=== PATIENT | male | born 1940 | race Caucasian/White ===

== ENCOUNTER 2021-04-10 10:22 | Observation (INO) | payer OTHER, SELFPAY ==
[2021-04-10] VITALS (36 sets, daily range): BP systolic 144–233; BP diastolic 76–130; PULSE 55–110; RESP 15–25; TEMP 36.5–36.8; O2SAT 93–100; BMI 24.3
--- NOTE | 2021-04-10 | ECHO_ITS ---
Patient Info Name: Vladimir uMrry Age: 80 years : 1940 Gender: Male Ht: 69 in Wt: 171 lbs BSA: 1.95 m2 HR: 64 bpm BP: 194 / 81 mmHg Technical Quality: Good Exam Date: 04/10/2021 4:01 PM Exam Location: [facility] Pulmonary Exam Room: [facility] Patient Status: Outpatient Admit Date: 04/10/2021 Staff Ordering Physician: Singh Corado DO Clergy Member: Cherri Patel RDCS Attending Provider: Milton Garcia MD Referring Physician: Mak OLIVO; Exam Type: CA echo doppler color flow Study Info Indications - hypertyensive urgency palpitations chest pain Complete two-dimensional, color flow and Doppler transthoracic echocardiogram is performed. Summary 1. Complete two-dimensional, color flow and Doppler transthoracic echocardiogram is performed. 2. Left ventricular chamber dimension is normal. 3. Left ventricular systolic function is normal, estimated at 60-65%. 4. The left ventricular diastolic function is grade I diastolic dysfunction. 5. E/e' 8 is minimally elevated. 6. Right atrial chamber dimension is mildly enlarged. 7. The mitral valve has mildly calcified annulus. 8. There is trace mitral valve regurgitation. 9. There is mild tricuspid valve regurgitation. 10. No pulmonary hypertension, estimated pulmonary arterial systolic pressure is 25 mmHg. 11. There is mild pulmonic regurgitation. Left Ventricle E/e' 8 is minimally elevated. Left ventricular chamber dimension is normal. Left ventricular systolic function is normal, estimated at 60-65%. The left ventricular diastolic function is grade I diastolic dysfunction. Right Ventricle Right ventricular systolic function is normal and with normal TAPSE 2.6 cm. Right ventricular chamber dimension is normal. Left Atria Left atrial chamber dimension is normal. Right Atria Right atrial chamber dimension is mildly enlarged. Aortic Valve The aortic valve is trileaflet. There is no aortic valve stenosis. There is no aortic valve regurgitation. Pulmonic Valve There is mild pulmonic regurgitation. Mitral Valve The mitral valve has mildly calcified annulus. There is no mitral valve stenosis. There is trace mitral valve regurgitation. Tricuspid Valve There is mild tricuspid valve regurgitation. No pulmonary hypertension, estimated pulmonary arterial systolic pressure is 25 mmHg. Pericardium/Pleural There is no pericardial effusion. Inferior Vena Cava Normal inferior vena cava with >50% collapse upon inspiration consistent with normal right atrial pressure, 5 mmHg. Aorta The aortic root size at the sinus of Valsalva is normal. Left Ventricular Outflow Tract Name Value Normal LVOT 2D LVOT Diameter 2.0 cm LVOT Doppler LVOT Peak Gradient 5 mmHg LVOT Mean Gradient 3 mmHg LVOT VTI 26 cm LVOT VTI/AV VTI Ratio 0.9 LVOT Stroke Volume 84 ml LVOT CO 14.9 l/min LVOT CI 7.6 l/min/m2 Pulmonic Valve ---------
--- NOTE | ~2021-04-10 | XR_ITS ---
EXAMINATION: XR chest 2V EXAM DATE: 04/10/2021 10:39 INDICATION: Acute onset chest pain since last night. Hypertension. TECHNIQUE: Frontal and lateral projections of the chest obtained and reviewed. Comparison is made to prior examination from 11/11/2016. FINDINGS: Small amount right upper lobe scarring. There are no pleural effusions. The cardiomediast inal silhouette is within normal limits. There is no pneumothorax suspected. The bones and soft tis sues are unremarkable. Right upper quadrant calcification, possible cholelithiasis. IMPRESSION: No acute cardiopulmonary findings. Reviewed, dictated and finalized at location B.
--- NOTE | 2021-04-10 10:30 | ECG_ITS ---
Measurements Intervals [place] Rate: 91 P: 55 MN: 199 QRS: 30 QRSD: 99 T: 50 QT: 339 QTc: 417 Interpretive Statements SINUS RHYTHM VENTRICULAR PREMATURE COMPLEX BASELINE ARTIFACT- III, AVL, AVF, V1 BORDERLINE ECG Electronically Signed On 04-10-2021 10:46:40 CDT by Singh Coardo D.O.
[2021-04-10 10:41] LABS: Basophils Percent Auto 0.4 % (0.2-1.2); Eosinophils Absolute Auto 0.1 K/mm3 (0-0.3); Eosinophils Percent Auto 1.2 % (0-4.4); Hematocrit 47.5 % (42.0-52.0); Hemoglobin 15.8 g/dL (14.0-18.0); Immature Granulocyte Absolute 0.03 K/mm3 (0.00-0.031); Immature Granulocyte Percent A 0.4 % (0-0.5); Lymphocytes Absolute Auto 2.12 K/mm3 (0.9-3.2); Lymphocytes Percent Auto 27.4 % (18.3-44.2); Mean Corpuscular HGB Conc 33.3 g/dl (32-36); Mean Corpuscular Volume 90.1 fl (80-100); Mean Platelet Volume 8.6 fl (7.4-10.4); Monocytes Absolute Auto 0.3 K/mm3 (0.1-0.6); Monocytes Percent Auto 3.5 % (2.6-8.5); Neutrophils Absolute Auto 5.2 K/mm3 (1.3-6.7); Neutrophils Percent Auto 67.1 % (45.5-73.1); Platelet Count Result 308 k/mm3 (150-375); Red Blood Count 5.27 M/mm3 (4.6-6.20); Red Cell Distribution Width 12.9 % (11.5-14.5); White Blood Count 7.7 K/mm3 (4.5-10.0)
--- NOTE | 2021-04-10 10:47 | ED.CHESTPAIN ---
HPI - Chest Pain General Chief Complaint: Chest Pain Stated Complaint: CHEST PAIN Time Seen by Provider: 04/10/21 10:39 Source: patient Mode of arrival: ambulatory Limitations: no limitations History of Present Illness HPI narrative: Patient is a 80-year-old male complaining of chest pain, midsternal, pressure, thumping , 4 out of 10, started 1 week ago and has progressively gotten worse. Patient denies any shortness of breath, abdominal pain, nausea, vomiting, diaphoresis, fever or chills. Related Data Home Medications Medication Instructions Recorded Confirmed No Home Medications 04/10/21 Allergies Allergy/AdvReac Type Severity Reaction Status Date / Time No Known Allergies Allergy Verified 11/13/16 00:02 Review of Systems Review of Systems: All systems reviewed & are unremarkable except as noted in HPI and below Constitutional: Constitutional: Denies body ache(s), Denies chills, Denies excessive sweating, Denies fatigue, Denies fever(s), Denies headache(s), Denies lethargy, Denies malaise, Denies weakness and Denies weight loss Eyes: Eyes: Denies blurry vision, Denies change in vision and Denies loss of vision ENT: Denies dizziness, Denies ear discharge, Denies headache(s), Denies lip swelling, Denies epistaxis, Denies nasal congestion, Denies neck pain, Denies throat swelling and Denies tongue swelling Cardiovascular: Cardiovascular: Denies diaphoresis, Denies rapid heart rate, Denies edema, Denies irregular heart rhythm, Denies lightheadedness, Denies palpitations, Denies dyspnea and Denies dyspnea on exertion Respiratory: Respiratory: Denies chest congestion, Denies cough, Denies hemoptysis, Denies dyspnea and Denies dyspnea on exertion Gastrointestinal: Gastrointestinal: Denies abdominal pain, Denies melena, Denies hematochezia, Denies diarrhea, Denies nausea, Denies vomiting and Denies hematemesis Musculoskeletal: Musculoskeletal: Denies abnormal gait, Denies deformity, Denies joint swelling, Denies limited range of motion, Denies neck pain and Denies numbness Neurologic: Denies Abnormal speech present, Denies abnormal gait, Denies confusion, Denies dizziness, Denies headache(s), Denies focal weakness, Denies loss of vision, Denies numbness, Denies Other visual disturbances, Denies Sensory deficit (Neuro) and Denies weakness Psychiatric: Psychiatric: Denies confusion, Denies depression, Denies auditory hallucinations, Denies homicidal ideation and Denies suicidal ideation Endocrine: Endocrine: Denies cold intolerance, Denies excessive sweating, Denies fatigue, Denies heat intolerance and Denies palpitations Hematologic/Lymphatic: Hematologic/Lymphatic: Denies easy bleeding and Denies easy bruising Allergic/Immunologic: Allergic/Immunologic: Denies lip swelling, Denies throat swelling and Denies tongue swelling PMFSH Comments Past medical history: None Family history: Negative for coronary disease or [place] Social history: Non-smoker no EtOH or drug use Exam Const: General: cooperative, healthy appearing, comfortable, no acute distress, well developed, alert and awake; No confusion Orientation/consciousness: oriented to person, oriented to place, oriented to time, patient oriented x3 and No confusion Limitations: no limitations HENMT: Head: normal to inspection, normocephalic and atraumatic Ears: hearing grossly normal bilaterally, TM normal on the right and TM normal on the left General nose exam: Normal external nose present, Normal nares present and No nasal discharge present Face and sinus: normal facial exam Mouth: Yes Normal oral and palatal mucosa present, Yes lip normal, Yes tongue normal and Yes oropharynx normal Throat: posterior oropharynx normal, tonsils normal and uvula midline Eyes: General: appearance normal, both eyes and all related structures Pupils: Equal, round and reactive pupils present EOM: EOMs intact bilaterally Neck: Neck: normal visual inspection, full ROM, no lymphadenopathy an
[2021-04-10 10:48] LABS: INR 0.9
[2021-04-10] MEDS: NITROGLYCERIN SL 0.4 MG TABLET SUBLINGUAL (10:48)
[2021-04-10 10:49] LABS: Partial Thromboplastin Time 31.4 SECONDS (22.3-36.8)
[2021-04-10 10:51] LABS: Anion Gap 13 mmol/L (8-16); Blood Urea Nitrogen 18 mg/dL (9-20); Calcium 9.7 mg/dL (8.4-10.2); Carbon Dioxide 24 mmol/L (22-30); Chloride 104 mmol/L (98-107); Estimated CRCL calculation 53 ml/min; Estimated Glomerular Filt Rate > 60; Glucose 187 mg/dL (65-110); Potassium 4.2 mmol/L (3.4-5.0); Sodium 141 mmol/L (137-145)
[2021-04-10] MEDS: ASPIRIN 81 MG CHEWABLE TABLET 324 MG PO (10:52)
[2021-04-10 11:03] LABS: Troponin I < 0.012 ng/mL (0.000-0.034)
--- NOTE | 2021-04-10 13:18 | PM.CNCAR ---
Assessment and Plan Assessment and plan (1) Palpitations: Code(s): R00.2 - Palpitations Status: Acute Assessment and Plan: Placed on telemetry. Series of troponin to r/o ACS. Obtain echo. (2) Hypertensive urgency: Code(s): I16.0 - Hypertensive urgency Status: Acute Assessment and Plan: Monitor BP as it is improving. Probably new onset Hypertension aggravated by palpitations/stress. Start Toprol XL 25 mg daily. History of Present Illness History of Present Illness Consult date/time: 04/10/21 13:18 Reason for consult: Palpitations. 80 yr old man presents to ED with palpitations. He has no prior cardiac problems. Reports that he received his second Moderna vaccine shot last week and ever since then he reported daily thumping sensation in his chest primarily at night while resting. Last night there was so much of it that it was hard for him to get to sleep. He can ride 20 miles on his bike without any problems and can walk 1 mile without any problems. He states he became anxious from this and his BP went up. His BP in ER was very high 230/130. He was given NTG SL and BP improved and his thumping resolved. Denies chest pain, sob, orthopnea, PND, edema, dizziness. Reason For Visit: CHEST PAIN Review of Systems Review of Systems: All systems reviewed & are unremarkable except as noted in HPI and below Constitutional: Constitutional: Reports as per HPI, Denies chills and Denies fever(s) Cardiovascular: Cardiovascular: Reports as per HPI, Denies chest pain, Reports irregular heart rhythm, Denies leg edema and Denies lightheadedness Respiratory: Respiratory: Reports as per HPI and Denies dyspnea Gastrointestinal: Gastrointestinal: Reports as per HPI and Denies abdominal pain Genitourinary: Genitourinary: Reports as per HPI and Denies dysuria Musculoskeletal: Musculoskeletal: Reports as per HPI Neurologic: Reports as per HPI, Denies dizziness and Denies syncope Meds Home Medications and Allergies Home Medications Medication Instructions Recorded Confirmed Type No Home Medications 04/10/21 History Allergies Allergy/AdvReac Type Severity Reaction Status Date / Time No Known Allergies Allergy Verified 11/13/16 00:02 Vital Signs Vital Signs - 24 hr 04/10/21 10:25 04/10/21 10:36 04/10/21 10:41 Temperature 98 F Pulse Rate 110 H 110 H 77 Respiratory Rate 20 24 H Blood Pressure 233/114 H Pulse Oximetry 100 100 04/10/21 10:45 04/10/21 10:46 04/10/21 10:58 Temperature Pulse Rate 81 87 95 Respiratory Rate 19 24 H 20 Blood Pressure 206/130 H Pulse Oximetry 100 99 04/10/21 11:00 04/10/21 11:01 04/10/21 11:02 Temperature Pulse Rate 72 75 76 Respiratory Rate 23 H 20 21 H Blood Pressure 178/89 H Pulse Oximetry 98 95 96 04/10/21 11:15 04/10/21 11:16 04/10/21 11:30 Temperature Pulse Rate 64 66 61 Respiratory Rate 15 20 20 Blood Pressure 158/79 H Pulse Oximetry 100 99 04/10/21 11:45 04/10/21 11:46 Temperature Pulse Rate 59 L 63 Respiratory Rate 15 21 H Blood Pressure 144/77 H Pulse Oximetry 99 Exam Const: General: cooperative, healthy appearing and comfortable Resp: Auscultation: clear to auscultation bilaterally, no crackles, no rales, no rhonchi and no wheezes Cardio: Jugular venous distension: no JVD Rate: regular rate Rhythm: regular rhythm Heart sounds: no murmurs Peripheral pulses: dorsalis pedis present GI: GI Palp: No abdominal tenderness and Yes Soft to palpation Neuro: General: oriented to person, oriented to place and oriented to time Extrem: Right lower extremity: no edema Left lower extremity: no edema Results Labs and Meds Result diagrams: 04/10/21 10:33 04/10/21 10:33 Lab results: Cardiac Enzymes 04/10/21 Range/Units 10:33 Troponin I < 0.012 (0.000-0.034) ng/mL Coagulation 04/10/21 Range/Units 10:33 PT 12.0 (11.1-14.7) S
--- NOTE | 2021-04-10 13:35 | PM.IMHP ---
H&P: HPI History of Present Illness Date/Time: 04/10/21 13:45 Chief Complaint: Chest pain. Narrative: This is a very pleasant 80-year-old male with no reported medical problems who presented to the emergency department earlier today via private vehicle from home for evaluation of chest pain. He received his 2nd Moderna vaccination last week and since that time he has had a low-grade headache and a ?thumping? sensation in his chest on a daily basis though it is most noticeable at nighttime. Last evening he did not get much sleep whatsoever due to feelings of a strong heartbeat. He also reports that it seemed to be little bit faster than usual though he denies feelings of irregular heartbeat. He has never had similar symptoms in the past and denies exertional chest pain and shortness of breath. In fact he is very active, walking up to a mi several days a week in addition to riding his bicycle 20 miles, several times a week without issue. On arrival to the emergency department today his blood pressure was 233/114 and he admitted at that time that he was feeling a bit anxious about his symptoms. Unfortunately his blood pressures have remained quite elevated and he tells me that he has never had a systolic blood pressure over 140 though he does not believe his blood pressure has been checked for approximately 1 year. He denies vertigo, auditory and visual changes, focal weakness, feelings of irregular heartbeat, PND, orthopnea, lower extremity edema, nausea, vomiting, and sweats. He drinks 2 cups coffee a day and perhaps 1 alcoholic beverage a week. No illicit substance use. No personal or family history of coronary artery disease or cardiac dysrhythmia. No known history of thyroid disease. No concerns for sleep apnea. Review of Systems Review of Systems: Twelve systems were reviewed with pertinent positives and negatives as per HPI. He denies fever, chills, and sweats. No recent cold or flu symptoms. He denies cough and shortness of breath. No nausea, vomiting, or diarrhea. No dysuria. He occasionally has paresthesias in left upper extremity which seemed to be positional and likely related to pinched nerve. He denies pain and discomfort in his left arm, shoulder, and neck. No dexterity issues. Except as documented, all other systems were reviewed and are negative. [facility] Past Medical History Medical History (Updated 09/03/21 @ 23:19 by Suzanne Lopez PA-C) Gastroesophageal reflux disease Hypercholesterolemia Surgical History Surgical History (Updated 04/10/21 @ 23:19 by Suzanne Lopez PA-C) History of bilateral cataract extraction (2016) History of inguinal hernia repair History of umbilical hernia repair Family History Family History Father Prostate carcinoma Mother Cancer of unknown origin Social History Social History (Updated 04/10/21 @ 23:20 by Suzanne Lopez PA-C) Social History: Surrogate decision maker: Lucia Murry, . Code status: Full code. Smoking packs per day: 0.5 Smoking cigarettes per day: 10.0 Years smoked: 10 Smoking pack-years: 5.00 Smoking status: Former smoker Tobacco type: cigarettes Smoking end date: 08/08/69 Alcohol intake: current Drinks per week: 1 Substance use type: does not use Additional living arrangements comments: Resides with his in [place]. They have 2 daughters. Additional occupation/education comments: Retired. Meds Home Medications and Allergies Home Medications Medication Instructions Recorded Confirmed Type No Home Medications 04/10/21 04/10/21 History Allergies Allergy/AdvReac Type Severity Reaction Status Date / Time No Known Allergies Allergy Verified 11/13/16 00:02 Vital Signs Vital Signs - 24 hr 04/10/21 10:25 04/10/21 10:36 04/10/21 10:41 Temperature 98 F Pulse Rate 110 H 110 H 77 Respiratory Rate 20 24 H Blood Pressure 233/114 H Pulse
[2021-04-10] MEDS: LABETALOL HCL INJ 100 MG/20 ML VIAL 20 MG IV PUSH (13:48)
[2021-04-10 14:39] LABS: Troponin I 0.013 ng/mL (0.000-0.034)
--- NOTE | 2021-04-10 14:56 | PC.NURSE ---
Patient arrived to [facility] from the ER at 1410. No complaints at this time, assessment completed.
--- NOTE | 2021-04-10 17:44 | PC.NURSE ---
Notified Suzanne KEITH of pts arrival and status at 1600.
--- NOTE | 2021-04-10 17:53 | PC.NURSE ---
Attempted to call Suzanne Lopez regarding continued elevated B/P. Attempted to call lab x 2 about missing Troponin lab draw.
[2021-04-10] MEDS: carvediloL 6.25 MG TABLET PO (18:13)
[2021-04-10] MEDS: ACETAMINOPHEN 325 MG TABLET 650 MG PO (18:15)
--- NOTE | 2021-04-10 18:19 | PC.NURSE ---
Spoke with Suzanne KEITH at 1805 regarding continued elevated B/P. 2100 Coreg Given and received orders for Tylenol 650mg Q6 PRN
--- NOTE | 2021-04-10 18:55 | PC.NURSE ---
Called and spoke with lab about late blood draw, will need to be reordered.
[2021-04-10 20:00] LABS: Hemoglobin A1C 5.5 % (<5.7)
[2021-04-10 20:07] LABS: Alanine Aminotransferase 28 U/L (4-50); Albumin Level 4.4 g/dL (3.5-5.1); Alkaline Phosphatase 87 U/L (38-126); Aspartate Amino Transferase 34 U/L (17-59); Bilirubin,Total 0.3 mg/dL (0.2-1.3); Magnesium 2.2 mg/dL (1.6-2.3)
[2021-04-10 20:15] LABS: Troponin I < 0.012 ng/mL (0.000-0.034)
--- NOTE | 2021-04-10 21:40 | PC.NURSE ---
Nadeen aware of patient's BP. She will be by in the next hour to see patient physically.
[2021-04-11] VITALS (10 sets, daily range): BP systolic 123–171; BP diastolic 70–84; PULSE 55–75; RESP 16–22; TEMP 36.7–36.8; O2SAT 96–100
[2021-04-11 06:23] LABS: Cholesterol 218 mg/dL (0-200); HDL Direct 52 mg/dL; Triglycerides 119 mg/dL (<150)
[2021-04-11 06:34] LABS: LDL Cholesterol Direct 112 mg/dL
[2021-04-11 07:15] LABS: Anion Gap 8 mmol/L (8-16); Blood Urea Nitrogen 19 mg/dL (9-20); Calcium 9.4 mg/dL (8.4-10.2); Carbon Dioxide 24 mmol/L (22-30); Chloride 108 mmol/L (98-107); Estimated CRCL calculation 55 ml/min; Estimated Glomerular Filt Rate > 60; Glucose 110 mg/dL (65-110); Potassium 4.1 mmol/L (3.4-5.0); Sodium 140 mmol/L (137-145)
--- NOTE | 2021-04-11 08:23 | PM.PNCARD ---
Progress Note: A&P Assessment and Plan (1) Palpitations: Code(s): R00.2 - Palpitations Status: Acute Assessment and Plan: Placed on telemetry which did not show any arrhythmias or significant ectopies. No MA by series of troponin and EKG. Echo is essentially normal. Would benefit from outpatient 30 day event monitor. Will have it placed in my office after discharge. (2) Hypertensive urgency: Code(s): I16.0 - Hypertensive urgency Status: Acute Assessment and Plan: New onset hypertension. Started Coreg 6.25 mg BID yesterday and start Amlodipine 5 mg daily today. If SBP <150 systolic, may d/c home and f/u with me in 1 week. (3) Hypercholesterolemia: Code(s): E78.00 - Pure hypercholesterolemia, unspecified Status: Acute Assessment and Plan: Advise to maintain a low saturated fat diet. Subjective Date/time seen: 04/11/21 08:23 Patient reports he did not have thumping sensation in his chest last night like he did for a week. Denies chest pain or sob. He feels great. Exam Const: General: cooperative, healthy appearing and comfortable Resp: Auscultation: clear to auscultation bilaterally, no crackles, no rales, no rhonchi and no wheezes Cardio: Jugular venous distension: no JVD Rate: regular rate Rhythm: regular rhythm Heart sounds: no murmurs Peripheral pulses: dorsalis pedis present GI: GI Palp: No abdominal tenderness and Yes Soft to palpation Neuro: General: oriented to person, oriented to place and oriented to time Extrem: Right lower extremity: no edema Left lower extremity: no edema Objective Data Vital Signs Vital Signs: Vital Signs - 24 hr 04/10/21 10:25 04/10/21 10:36 04/10/21 10:41 Temperature 98 F Pulse Rate 110 H 110 H 77 Respiratory Rate 20 24 H Blood Pressure 233/114 H Pulse Oximetry 100 100 04/10/21 10:45 04/10/21 10:46 04/10/21 10:58 Temperature Pulse Rate 81 87 95 Respiratory Rate 19 24 H 20 Blood Pressure 206/130 H Pulse Oximetry 100 99 04/10/21 11:00 04/10/21 11:01 04/10/21 11:02 Temperature Pulse Rate 72 75 76 Respiratory Rate 23 H 20 21 H Blood Pressure 178/89 H Pulse Oximetry 98 95 96 04/10/21 11:15 04/10/21 11:16 04/10/21 11:30 Temperature Pulse Rate 64 66 61 Respiratory Rate 15 20 20 Blood Pressure 158/79 H Pulse Oximetry 100 99 04/10/21 11:45 04/10/21 11:46 04/10/21 11:47 Temperature Pulse Rate 59 L 63 61 Respiratory Rate 15 21 H 21 H Blood Pressure 144/77 H Pulse Oximetry 99 04/10/21 12:02 04/10/21 12:15 04/10/21 12:16 Temperature Pulse Rate 57 L 59 L 59 L Respiratory Rate 23 H 15 22 H Blood Pressure 150/80 H Pulse Oximetry 96 04/10/21 12:30 04/10/21 12:31 04/10/21 12:45 Temperature Pulse Rate 58 L 60 59 L Respiratory Rate 19 17 18 Blood Pressure 166/76 H Pulse Oximetry 04/10/21 12:46 04/10/21 13:21 04/10/21 13:30 Temperature 97.7 F Pulse Rate 60 83 Respiratory Rate 20 23 H Blood Pressure 165/83 H Pulse Oximetry 93 04/10/21 13:35 04/10/21 13:48 04/10/21 13:50 Temperature Pulse Rate 69 65 70 Respiratory Rate 18 20 Blood Pressure 198/89 H 187/85 H Pulse Oximetry 97 94 04/10/21 13:56 04/10/21 15:02 04/10/21 15:12 Temperature 98 F Pulse Rate 60 59 L 61 Respiratory Rate 18 16 Blood Pressure 159/82 H 194/81 H Pulse Oximetry 98 99 04/10/21 17:17 04/10/21 17:19 04/10/21 18:13 Temperature Pulse Rate 69 65 70 Respiratory Rate 16 Blood Pressure 187/94 H Pulse Oximetry 98 04/10/21 19:06 04/10/21 20:00 04/10/21 22:00 Temperature 98.2 F Pulse Rate 56 L 55 L Respiratory Rate 25 H Blood Pressure 165/86 H 164/94 H Pulse Oximetry 95 04/11/21 00:00 04/11/21 02:00 04/11/21 04:00 Temperature 98.0 F 98.3 F Pulse Rate 56 L 55 L 60 Respiratory Rate 22 H 16 Blood Pressure 157/79 H 171/84 H Pulse Oximetry 97 96 04/11/21 05:57 04/11/21 07:49 Temperature 98.0 F
[2021-04-11] MEDS: amLODIPine BESYLATE 5 MG TABLET PO (08:37)
[2021-04-11] MEDS: carvediloL 6.25 MG TABLET PO (08:38)
--- NOTE | 2021-04-11 13:30 | PM.DS ---
DS: Admitting Diagnosis Admitting Diagnosis palpitations DS: Discharge Diagnosis Discharge Diagnosis (1) Palpitations: Code(s): R00.2 - Palpitations Status: Acute Assessment and Plan: The patient presents today for evaluation of what sounds like palpitations as he describes a ?thumping? sensation in his chest though it seems to be most noticeable at nighttime he denies feelings of irregular heartbeat. May very well be related to significantly elevated blood pressure. EKG shows no acute changes and his troponins have thus far been negative. Echocardiogram is pending at this time. Dr. Corado has been consulted and his input is appreciated. (2) Hypertensive urgency: Code(s): I16.0 - Hypertensive urgency Status: Acute Assessment and Plan: I suspect his blood pressures have been elevated for a while. Blood pressures did improve with labetalol 20 mg IV push given in the emergency department and he has since been started on carvedilol 6.25 mg q.[address] Corado. Amlodipine 5mg daily was begun on 04/11. (3) Hypercholesterolemia: Code(s): E78.00 - Pure hypercholesterolemia, unspecified Status: Acute Assessment and Plan: Patient was previously told that his cholesterol was mildly elevated but not significant enough for him to require medication. chol 218 LDL 112 HDL 52 Trigs 119 DS: Summary Hospital Course Reason for hospitalization: palpitations Hospital Course: This elderly gentleman in otherwise good health was admitted due to palpitations and vague chest discomfort. They were not associated with activity or position. There were no associated symptoms. In the emergency department blood pressure was markedly elevated at 233/114. This responded somewhat to labetalol 20 mg IV x1. P.r.n. hydralazine was available. Carvedilol 6.25 mg p.o. every 12 hours was begun. Serial troponins were negative. Once his blood pressure was lowered he remained asymptomatic. Heart rate remained in the 60 range on telemetry with sinus rhythm. He tolerated his diet well. He had orthostatic symptoms when up and about. He wished to go home and follow-up with his primary physician. Status at Discharge Functional status at discharge: independent ambulation Overall status at discharge: patient is back to baseline Time Spent with Patient Time attestation: Total time spent providing and/or coordinating discharge services: Time spent: Greater than 30 minutes Exam Narrative: General: Well-developed male supine in bed no distress. Weight: 77 kg. BMI: 24.4. HEENT: Normocephalic, atraumatic. PERRL, EOMI. Sclerae anicteric. Oral mucosa moist. Oropharynx clear. Neck: Supple. No JVD or bruits. Respiratory: Lungs are clear to auscultation bilaterally. Cardiovascular: Bradycardic with S1-S2. Telemetry shows sinus bradycardia with a rate around 60. Gastrointestinal: Abdomen is soft, nontender, and nondistended with positive bowel sounds. Skin: Warm and dry. No rash or lesions on limited exam. Extremities: No cyanosis, clubbing, or edema. Radial and pedal pulses intact. Neurological: Alert. Cranial nerves 2-12 are grossly intact. No gross focal deficits to casual conversation. Psychiatric: Pleasant and cooperative with normal mood and affect. Judgment and insight intact. DS: Data Data Completed and Pending Labs on day of discharge: Labs from last 24 hours 04/11/21 04/11/21 04/10/21 05:58 05:52 19:33 Sodium 140 Potassium 4.1 Chloride 108 H Carbon Dioxide 24 Anion Gap 8 BUN 19 Creatinine 1.00 Estim Creat Clear Calc 55 Estimated GFR > 60 Glucose 110 Hemoglobin A1c Calcium 9.4 Magnesium Total Bilirubin Direct Bilirubin AST ALT Alkaline Phosphatase Troponin I < 0.012 Total Protein Albumin Triglycerides 119 Cholesterol 218 H LDL Cholesterol Direct 112 HDL Direct 52 TSH (Reflex) 04/10/21 04/10/21 09
[2021-04-11] MEDS: ACETAMINOPHEN 325 MG TABLET 650 MG PO (13:44)
== END 2021-04-11 14:17 | disposition home or self-care (01) ==
LOC: ANHED 12:40 → ANHCPC 13:35
PROVIDERS: Physician Assistant; Admitting Provider Internal Medicine; Emergency Provider Emergency Medicine; PCP Family Medicine Sports Medicine; Visit Provider Internal Medicine
DX: R00.2 Palpitations (principal); I16.0 Hypertensive urgency; E78.00 Pure hypercholesterolemia, unspecified; R07.9 Chest pain, unspecified; Z87.891 Personal history of nicotine dependence; K21.9 Gastro-esophageal reflux disease without esophagitis; Z79.899 Other long term (current) drug therapy
CPT/HCPCS: 36415; 71046; 80048; 80061; 80076; 83036; 83735; 84443; 84484; 85025; 85610; 85730; 93005; 93306; 96374; 99285; A9270; G0378

== ENCOUNTER 2021-06-12 08:15 | Outpatient (CLI) | payer OTHER, SELFPAY ==
--- NOTE | 2021-07-01 17:15 | WPDHOMESLEEP ---
Sleep Study - Home Unattended Date of Study: 06/12/21 Ordering Provider: Singh Corado DO Interpreting Provider: Kenzie Harrington MD Home Sleep Study Type: Apnea Link Air Height: 1.78 m Weight: 76.204 kg Body Mass Index: 24.0 Neck Circumference (inches): 16 [place]: 1 Reason for Sleep Study Palpitations, loud snoring; wakes during the night Sleep History Vladimir Murry is a 80 year old man who has difficulty falling asleep most nights. He generally is able to fall asleep within 30 minutes. He wakes after 4 to 5 hours of sleep, and does not always feel refreshed. He often is tired during the day, especially if does not get enough sleep. He has had problems with his sleep for more than 2 years. He does not wake up feeling short of breath or having heartburn, belching or coughing at night. He frequently snores loudly, an occasionally it is loud enough that others complain about it. He does not gasp for breath at night or sweat excessively at night. He occasionally notices his heart beating irregularly at night. He rarely falls asleep in the day, never involuntarily or while driving. he does not have loss of muscle tone with strong emotion, and does not have difficulties in the day due to excessive sleepiness. There is not paralysis on waking or falling asleep. He does not have vivid dreamlike scnes on waking or falling asleep. He is not afraid to go to sleep. Denies nightmares. He does not have dream recall. He rarely has racing thoughts. He does not feel sad or depressed, and rarely feels anxious. He does not kick at night or notice parts of his body jerking at night. He rarely has crawling and aching feelings in his legs at night, and rarely has leg pain at night. He denies jaw pain in the morning, does not grind his teeth at night, is not bothered by pain in the day and is not awakened by pain during the night. HE rarely wakes up feeling stiff in the morning, rarely wakes with sore or achey muscles, and rarely wakes with pain in the neck and spine. Normal bedtime is 10 p.m., falling asleep within 30 minutes, waking once at night for 15-30 minutes. During this time, he goes to the bathroom and sometimes gets a drink of water. He wakes in the morning between 6:00 -7:00 a.m. He estimates getting 8 hours of sleep at night. He does not take naps in the day. He occasionally wakes feeling refreshed, and feels better in the evening compared to other times of the day. Habits: Former smoker, none for years. Caffeine - 2 servings a day; alcohol once a week. No recreational drugs. [facility] Past Medical History Medical History (Updated 07/01/21 @ 17:49 by Kenzie Harrington MD) Gastroesophageal reflux disease Hypercholesterolemia Hypertension Surgical History Surgical History History of bilateral cataract extraction (2015) History of inguinal hernia repair History of umbilical hernia repair Family History Family History Father Prostate carcinoma Mother Cancer of unknown origin Social History Social History Social History: Surrogate decision maker: Lucia Murry, . Code status: Full code. Smoking packs per day: 0.5 Smoking cigarettes per day: 10.0 Years smoked: 10 Smoking pack-years: 5.00 Smoking status: Former smoker Tobacco type: cigarettes Smoking end date: 08/08/69 Alcohol intake: current Drinks per week: 1 Substance use type: does not use Additional living arrangements comments: Resides with his in [place]. They have 2 daughters. Additional occupation/education comments: Retired. Medications Home Medications Medication Instructions Recorded Confirmed Type acetaminophen [Mapap 650 mg PO Q6H PRN #60 tablet 04/11/21 04/29/21 Rx (acetaminophen)] amlodipine [Norvasc] 5 mg PO QAM #30 tablet 04/11/21 04/29/21 Rx amlodipine
[2021-07-01 17:22] VITALS: BMI 24.0
== END 2021-06-15 16:01 | disposition home or self-care (01) ==
LOC: ANHCSM 06-15 08:15
PROVIDERS: PCP Family Medicine Sports Medicine; Visit Provider Internal Medicine Cardiovascular Disease
DX: G47.10 Hypersomnia, unspecified (principal); G47.33 Obstructive sleep apnea (adult) (pediatric)
CPT/HCPCS: 95806

== ENCOUNTER 2021-07-27 07:54 | Outpatient (CLI) | payer OTHER, SELFPAY ==
--- NOTE | 2021-08-17 14:45 | WPDSLEEPSTUD ---
Sleep Study Date of Study: 07/27/21 <Gena Merchant DO - Last Filed: 08/18/21 11:51> Ordering Provider: Singh Corado DO <Gena Merchant, DO - Last Filed: 08/18/21 11:51> Interpreting Physician: Gena Merchant DO <Gena Merchant, DO - Last Filed: 08/18/21 11:51> Sleep Study Type: CPAP Titration <Gena Merchant DO - Last Filed: 08/18/21 11:51> Height: 1.78 m <Gena Merchant DO - Last Filed: 08/18/21 11:51> Weight: 75.75 kg <Gena Merchant DO - Last Filed: 08/18/21 11:51> Body Mass Index: 23.9 <Gena Merchant DO - Last Filed: 08/18/21 11:51> Neck Circumference (inches): 15.5 <Gena Merchant DO - Last Filed: 08/18/21 11:51> [place]: 3 <Gena Merchant DO - Last Filed: 08/18/21 11:51> Reason for Sleep Study The patient had a HSAT on 06/12/2021 that showed an AHI of 6.9. The patient was recommended to have a PAP Titration study. <Gean Merchant DO - Last Filed: 08/18/21 11:51> Sleep History Vladimir Murry is a 80 year old man who has difficulty falling asleep most nights. He generally is able to fall asleep within 30 minutes. He wakes after 4 to 5 hours of sleep, and does not always feel refreshed. He often is tired during the day, especially if does not get enough sleep. He has had problems with his sleep for more than 2 years. He does not wake up feeling short of breath or having heartburn, belching or coughing at night. He frequently snores loudly, an occasionally it is loud enough that others complain about it. He does not gasp for breath at night or sweat excessively at night. He occasionally notices his heart beating irregularly at night. He rarely falls asleep in the day, never involuntarily or while driving. he does not have loss of muscle tone with strong emotion, and does not have difficulties in the day due to excessive sleepiness. There is not paralysis on waking or falling asleep. He does not have vivid dreamlike scnes on waking or falling asleep. He is not afraid to go to sleep. Denies nightmares. He does not have dream recall. He rarely has racing thoughts. He does not feel sad or depressed, and rarely feels anxious. He does not kick at night or notice parts of his body jerking at night. He rarely has crawling and aching feelings in his legs at night, and rarely has leg pain at night. He denies jaw pain in the morning, does not grind his teeth at night, is not bothered by pain in the day and is not awakened by pain during the night. He rarely wakes up feeling stiff in the morning, rarely wakes with sore or achy muscles, and rarely wakes with pain in the neck and spine. Normal bedtime is 10 p.m., falling asleep within 30 minutes, waking once at night for 15-30 minutes. During this time, he goes to the bathroom and sometimes gets a drink of water. He wakes in the morning between 6:00 -7:00 a.m. He estimates getting 8 hours of sleep at night. He does not take naps in the day. He occasionally wakes feeling refreshed, and feels better in the evening compared to other times of the day. Habits: Former smoker, none for years. Caffeine - 2 servings a day; alcohol once a week. No recreational drugs. <Gena Merchant DO - Last Filed: 08/18/21 11:51> [facility] Past Medical History Medical History: Medical History Gastroesophageal reflux disease Hypercholesterolemia Hypertension <Gena Merchant DO - Last Filed: 08/18/21 11:51> Surgical History Surgical History: Surgical History History of bilateral cataract extraction (2016) History of inguinal hernia repair History of umbilical hernia repair <Gena Merchant DO - Last Filed: 08/18/21 11:51> Family History Family History: Family History Father Prostate carcinoma
[2021-08-18 11:46] VITALS: BMI 23.9
== END 2021-07-28 06:39 | disposition home or self-care (01) ==
LOC: ANHCSM 07:54
PROVIDERS: PCP Family Medicine Sports Medicine; Visit Provider Internal Medicine Cardiovascular Disease
DX: G47.33 Obstructive sleep apnea (adult) (pediatric) (principal)
CPT/HCPCS: 95811

== ENCOUNTER 2021-11-23 10:02 | Emergency (ER) | payer OTHER, SELFPAY ==
--- NOTE | ~2021-11-23 | XR_ITS ---
EXAMINATION: XR chest 2V DATE: 11/23/2021 10:33 INDICATION: Cough. TECHNIQUE: Frontal and lateral views of the chest were obtained. COMPARISON: Chest 2 views 04/10/2021 FINDINGS: There is mild scarring at the lung apices. No pleural effusion or pneumothorax. The heart s ize is normal. IMPRESSION: 1. Mild scarring at the lung apices. Reviewed, dictated and finalized at location B.
--- NOTE | 2021-11-23 10:07 | ED.URI ---
HPI - URI/Sore Throat General Chief Complaint: Upper Respiratory Infection Stated Complaint: congestion Time Seen by Provider: 11/23/21 10:27 Source: patient and RN notes reviewed Mode of arrival: ambulatory Limitations: no limitations History of Present Illness HPI Narrative: 81-year-old male presents with concern for 2 to 3-week history of cough, chest congestion. Reports symptoms started with nasal congestion, rhinorrhea. Reports he still has some nasal congestion. He denies fever, body aches, chills, sweats, nausea, vomiting, decreased appetite. Reports fatigue. Reports he has been taking Robitussin MD elicited complaint: cough (Chest congestion) Related Data Home Medications Medication Instructions Recorded Confirmed amlodipine [Norvasc] 10 mg PO DAILY 11/23/21 11/23/21 carvedilol [Coreg] 6.25 mg PO Q12H 11/23/21 11/23/21 losartan 50 mg PO DAILY 11/23/21 11/23/21 Allergies Allergy/AdvReac Type Severity Reaction Status Date / Time No Known Allergies Allergy Verified 11/23/21 10:25 Review of Systems Review of Systems: CONSTITUTIONAL: Denies malaise, chills, sweats, or fever. Reports fatigue EYES: Denies visual changes, redness, or discharge. ENT: Reports rhinorrhea, congestion. Denies sinus pain, otalgia and sore throat. CARDIOVASCULAR: Denies chest pain, palpitations, or edema. RESPIRATORY: Reports persistent cough. Denies dyspnea. GASTROINTESTINAL: Denies abdominal pain, nausea, vomiting, diarrhea SKIN: Denies rash or itching. MUSCULOSKELETAL: Denies myalgia. NEUROLOGIC: Denies headache. All systems reviewed & are unremarkable except as noted in HPI and below PMFSH Past Medical History Medical History Gastroesophageal reflux disease Hypercholesterolemia Hypertension Surgical History Surgical History History of bilateral cataract extraction (2016) History of inguinal hernia repair History of umbilical hernia repair Family History Family History Father Prostate carcinoma Mother Cancer of unknown origin Social History Social History Social History: Surrogate decision maker: Lucia Murry, . Code status: Full code. Smoking packs per day: 0.5 Smoking cigarettes per day: 10.0 Years smoked: 10 Smoking pack-years: 5.00 Smoking status: Former smoker Tobacco type: cigarettes Smoking end date: 08/08/69 Alcohol intake: current Drinks per week: 1 Substance use type: does not use Additional living arrangements comments: Resides with his in [place]. They have 2 daughters. Additional occupation/education comments: Retired. Comments At time of signature, agree with nursing past medical, surgical, social and family history. There is no relevant family history pertinent to the presenting complaint Exam Narrative: GENERAL: Well-appearing, well-nourished, and in no acute distress. HEAD: Normocephalic EYES: PERRLA, conjunctivae clear ENT: Nares clear, clear discharge. Mucous membranes moist. TM pearly chou with sharp light reflex bilaterally; no tragal tenderness. Oropharynx not erythematous without lesions. Tonsils not enlarged and without exudate, no drooling, no hoarseness, no trismus, uvula midline. NECK: Supple. No lymphadenopathy CHEST: Clear to auscultation, breath sounds equal. No wheezing, rhonchi, rales, or stridor. No respiratory distress, speaks in full sentences. HEART: Regular rate and rhythm. No murmur heard. SKIN: Warm, dry, no rash. NEURO: Alert and oriented x3. PSYCH: Normal mood and affect Course Course Emergency Course: Patient is aware of diagnosis, understands and agrees to treatment plan. Anticipatory guidance given. Patient agrees to follow-up as directed and is aware of reasons to seek care at the emergency d
[2021-11-23 10:19] VITALS: BP 151/79; PULSE 72; RESP 20; TEMP 36.6; O2SAT 100
== END 2021-11-23 10:54 | disposition home or self-care (01) ==
PROVIDERS: Emergency Provider Nurse Practitioner; PCP Family Medicine Sports Medicine
DX: J32.9 Chronic sinusitis, unspecified (principal); J40 Bronchitis, not specified as acute or chronic; Z87.891 Personal history of nicotine dependence; K21.9 Gastro-esophageal reflux disease without esophagitis; E78.00 Pure hypercholesterolemia, unspecified; I10 Essential (primary) hypertension; Z98.42 Cataract extraction status, left eye; Z98.41 Cataract extraction status, right eye
CPT/HCPCS: 71046; 99213; G0463

== ENCOUNTER 2022-11-05 11:47 | Emergency (ER) | payer OTHER, SELFPAY ==
--- NOTE | 2022-11-05 11:49 | ED.EXTPRO ---
HPI - Extremity Problem General Chief complaint: Extremity Injury, Upper Stated complaint: finger pain/lt hand Time Seen by Provider: 11/05/22 11:48 Source: patient Mode of arrival: ambulatory Limitations: no limitations History of Present Illness HPI Narrative: Mr. Murry is a new 82-year-old male patient presenting to the clinic today with complaints of possible left index finger infection. He reports he cut approximately 2 weeks ago and have been treating in a home. States that the tip of his finger is red and warm to touch but he denies any pain and is able to move it appropriately. He is concerned that it may be infected. Related Data Allergies Allergy/AdvReac Type Severity Reaction Status Date / Time No Known Allergies Allergy Verified 06/16/22 08:38 Review of Systems Review of Systems: Pertinent positives per HPI. Patient denies any fever, chills, rash, headache, visual changes, dizziness, cough, runny nose, sore throat, shortness of breath, chest pain, palpitations, nausea, vomiting, diarrhea, constipation, abdominal pain, or any urinary issues. [facility] Past Medical History Medical History Gastroesophageal reflux disease Hypercholesterolemia Hypertension Surgical History Surgical History History of bilateral cataract extraction (2015) History of inguinal hernia repair History of umbilical hernia repair Family History Family History Father Prostate carcinoma Mother Cancer of unknown origin Social History Social History Social History: Surrogate decision maker: Lucia Murry, . Code status: Full code. Smoking packs per day: 0.5 Smoking cigarettes per day: 10.0 Years smoked: 10 Smoking pack-years: 5.00 Smoking status: Never smoker Tobacco type: cigarettes Smoking end date: 08/08/69 Alcohol intake: current Drinks per week: 1 Substance use type: does not use Additional living arrangements comments: Resides with his in [place]. They have 2 daughters. Additional occupation/education comments: Retired. Comments At the time of my signature, I reviewed and agree with the nursing past medical, surgical, social, and family history. There is no relevant family history pertinent to the patient complaint. Exam Narrative: General: Well-developed, well nourished, in no apparent distress Head: Normocephalic, atraumatic. Cardio: Regular rate and rhythm, s1 and s2 normal, no murmur appreciated. Resp: Clear to auscultation bilaterally, no rhonchi, rales, wheezing or rubs. Musculoskeletal: No deformity, non-tender to palpation, mild inflammation to the distal volar aspect of the left index finger, grossly normal range of motion, muscle strength strong and equal, peripheral pulse strong, no edema, no cyanosis, normal gait and station Course Course Emergency Course: Portions of this record may have been created with voice recognition software. Level of Care: Express Care Visit Vital Signs Vital signs: Vital Signs Temperature 36.3 C L 11/05/22 12:01 Pulse Rate 65 11/05/22 12:01 Respiratory Rate 18 11/05/22 12:01 Blood Pressure 173/81 H 11/05/22 12:01 Pulse Oximetry 100 11/05/22 12:01 Oxygen Delivery Room Air 11/05/22 12:01 Temperature 36.3 C L 11/05/22 12:01 Pulse Rate 65 11/05/22 12:01 Respiratory Rate 18 11/05/22 12:01 Blood Pressure 173/81 H 11/05/22 12:01 Pulse Oximetry 100 11/05/22 12:01 Oxygen Delivery Room Air 11/05/22 12:01 Vital signs reviewed MDM - Extremity (Nontraumatic) MDM Narrative Medical decision making narrative: At the time of visit patient is resting comfortably on the exam table. No obvious sign of infection in the left finger at this time. Tetanus was updated
[2022-11-05 12:01] VITALS: BP 173/81; PULSE 65; RESP 18; TEMP 36.3; O2SAT 100
[2022-11-05] MEDS: TETANUS,DIPHTHERIA,AC PERTUSSIS ADULT (0.5 ML) BOOSTRIX IM (12:20)
== END 2022-11-05 12:33 | disposition home or self-care (01) ==
PROVIDERS: Emergency Provider Nurse Practitioner Family; PCP Family Medicine Sports Medicine
DX: S61.211A Laceration without foreign body of left index finger without damage to nail, initial encounter (principal); W45.8XXA Other foreign body or object entering through skin, initial encounter; Z23 Encounter for immunization; Z87.891 Personal history of nicotine dependence
CPT/HCPCS: 90471; 90715; 99212; G0463